=== PATIENT | female | born 1960 | race African-American/Black ===

== ENCOUNTER 2018-07-09 05:25 | Inpatient (IN) | payer OTHER ==
[2018-07-09] MEDS ORDERED: HEPARIN 1000 UNITS/ML 10 ML INJ (06:54)
[2018-07-09] MEDS ORDERED: BUPIVACAINE 0.25%/EPI (SDV) 30 ML INJ (06:54)
[2018-07-09] MEDS ORDERED: ROCURONIUM 50 MG INJ ×2 (07:00→07:03)
[2018-07-09] MEDS ORDERED: PROPOFOL 20 ML ×2 (07:03→09:17)
[2018-07-09] MEDS ORDERED: LIDOCAINE 2% (SDV) 5 ML INJ (07:03)
[2018-07-09] MEDS ORDERED: SUCCINYLCHOLINE CHLORIDE 100 MG/5 ML SYG IV (07:03)
[2018-07-09] MEDS ORDERED: MIDAZOLAM 1 MG/ML 2 ML INJ (07:04)
[2018-07-09] MEDS ORDERED: CEFAZOLIN 1 GM INJ (07:29)
[2018-07-09] MEDS ORDERED: BISACODYL 10 MG SUPP PR (07:30)
[2018-07-09] MEDS ORDERED: ACETAMINOPHEN 325 MG TAB PO (07:30)
[2018-07-09] MEDS ORDERED: NALOXONE (0.4 MG/ML) INJ IV (07:30)
[2018-07-09] MEDS ORDERED: CYCLOBENZAPRINE 10 MG TAB PO (07:30)
[2018-07-09] MEDS ORDERED: HYDROmorphONE 0.5 MG/0.5 ML SYG IV (07:30)
[2018-07-09] MEDS ORDERED: AL HYDROX/MG HYDROX/SIMETH 30 ML CUP PO (07:30)
[2018-07-09] MEDS ORDERED: DIPHENHYDRAMINE 50 MG INJ IV ×2 (07:30→11:00)
[2018-07-09] MEDS ORDERED: ONDANSETRON 4 MG INJ (07:50)
[2018-07-09] MEDS ORDERED: DEXAMETHASONE 4 MG/ML 1 ML INJ (07:50)
[2018-07-09] MEDS ORDERED: FAMOTIDINE 20 MG INJ (07:50)
[2018-07-09] MEDS ORDERED: hydrALAzine 20 MG INJ (08:17)
[2018-07-09] MEDS: SURGIFOAM POWDER 1 GM KIT (08:45)
[2018-07-09] MEDS: POLYMYXIN/BACITRACIN 1L IRRIG (08:46)
[2018-07-09] MEDS: SODIUM CL BACTERIOSTATIC 30 ML INJ (08:46)
[2018-07-09] MEDS: GELATIN SIZE 100 SPONGE (08:46)
[2018-07-09] MEDS: THROMBIN 5000 UNIT VIAL (08:47)
[2018-07-09] MEDS ORDERED: HYDROmorphONE 2 MG/ML SYG (09:37)
[2018-07-09] MEDS ORDERED: SUGAMMADEX SODIUM 200 MG/2 ML VIAL IV ×2 (10:22→10:36)
[2018-07-09] MEDS ORDERED: FENTAnyl 50 MCG/ML VIAL IV ×3 (11:00)
[2018-07-09] MEDS ORDERED: MEPERIDINE 25 MG INJ IV (11:00)
[2018-07-09] MEDS ORDERED: PROCHLORPERAZINE 10 MG INJ IV (11:00)
[2018-07-09] MEDS ORDERED: ONDANSETRON 4 MG INJ IV (11:00)
[2018-07-09] MEDS ORDERED: HYDROmorphONE 1 MG/5 ML IV SYRINGE IV ×3 (11:00)
[2018-07-09] MEDS: D5W-0.45 NACL + KCL 20 MEQ 1,000 ML IV ×2 (13:00→17:04)
[2018-07-09] MEDS: ONDANSETRON 4 MG INJ IV ×2 (14:00→20:40)
[2018-07-09] MEDS: DOCUSATE SODIUM 100 MG CAP PO ×2 (14:01→20:41)
[2018-07-09] MEDS: HYDROmorphONE 0.2 MG/ML PCA IV (15:32)
[2018-07-09] MEDS: CEFAZOLIN 1 GM/50 ML (PMX) 50 ML IVPB (16:25)
[2018-07-09] MEDS ORDERED: METOCLOPRAMIDE 10 MG INJ IV (19:00)
[2018-07-09] MEDS: NICOTINE (21 MG/24 HR) PATCH TRANSDERM (20:40)
[2018-07-09] MEDS: CEPASTAT LOZENGE MT (20:40)
[2018-07-10] MEDS: D5W-0.45 NACL + KCL 20 MEQ 1,000 ML IV ×2 (00:11→11:11)
[2018-07-10] MEDS: CEFAZOLIN 1 GM/50 ML (PMX) 50 ML IVPB ×2 (00:11→08:18)
[2018-07-10 05:21] LABS: ADD MAN DIFF? NO
[2018-07-10] MEDS: PANTOPRAZOLE 40 MG INJ IV (05:31)
[2018-07-10 05:34] LABS: BASOPHILS % 0.3 % (0.0-2.0); EOSINOPHILS % 0.2 % (0.0-7.0); HEMATOCRIT 37.9 % (37.0-47.0); HEMOGLOBIN 12.7 g/dl (12.0-16.0); LYMPHOCYTES # 1.9 10^3/ul (0.8-2.9); LYMPHOCYTES % 12.5 % (15.0-51.0); MEAN CORPUSCULAR HEMOGLOBIN 30.4 pg (29.0-33.0); MEAN CORPUSCULAR HGB CONC 33.5 g/dl (32.0-37.0); MEAN CORPUSCULAR VOLUME 90.7 fl (82.0-101.0); MONOCYTE # 1.3 10^3/ul (0.3-0.9); MONOCYTES % 8.3 % (0.0-11.0); NEUTROPHILS % 78.3 % (39.0-77.0); PLATELET COUNT 199 10^3/UL (140-415); RED BLOOD COUNT 4.18 10^6/ul (4.20-5.40); RED CELL DISTRIBUTION WIDTH 13.3 % (11.5-14.5)
[2018-07-10 05:34] LABS: WHITE BLOOD COUNT 15.3 10^3/ul (4.8-10.8)
[2018-07-10 06:01] LABS: ANION GAP 6 (5-13); BLOOD UREA NITROGEN 13 mg/dl (7-20); CALCIUM 9.6 mg/dl (8.4-10.2); CARBON DIOXIDE 26 mmol/L (21-31); CHLORIDE 107 mmol/L (97-110); CREATININE 0.85 mg/dl (0.44-1.00); Estimated GFR > 60 mL/min (>60); GLUCOSE 117 mg/dl (70-220); MAGNESIUM 1.7 mg/dl (1.7-2.5); POTASSIUM 4.2 mmol/L (3.5-5.1); SODIUM 139 mmol/L (135-144)
[2018-07-10] MEDS: DOCUSATE SODIUM 100 MG CAP PO (08:17)
[2018-07-10] MEDS: NICOTINE (21 MG/24 HR) PATCH TRANSDERM (08:17)
[2018-07-10] MEDS ORDERED: HYDROCODONE/APAP (10/325) TAB PO (13:00)
[2018-07-10] MEDS: HYDROCODONE/APAP (10/325) TAB PO (13:22)
[2018-07-11] MEDS ORDERED: HYDROCODONE/APAP (10/325) TAB PO ×2 (09:30)
== END 2018-07-10 14:50 | disposition home or self-care (01) | DRG 473 ==
LOC: REC 05:25 → MS1 11:57
PROC: 0RG20A0 Fusion of 2 or more Cervical Vertebral Joints with Interbody Fusion Device, Anterior Approach, Anterior Column, Open Approach (ICD-10-PCS; principal; 2018-07-09 07:00)
PROC: 0RG2070 Fusion of 2 or more Cervical Vertebral Joints with Autologous Tissue Substitute, Anterior Approach, Anterior Column, Open Approach (ICD-10-PCS; 2018-07-09 07:00)
PROC: 0RB30ZZ Excision of Cervical Vertebral Disc, Open Approach (ICD-10-PCS; 2018-07-09 07:00)
DX: M50.121 Cervical disc disorder at C4-C5 level with radiculopathy (principal); M48.02 Spinal stenosis, cervical region; M54.32 Sciatica, left side
CPT/HCPCS: 72050; 80048; 83735; 85025; 87086; 88304; 97116; 97162; 97530